=== PATIENT | male | born 1980 | race Caucasian/White ===

== ENCOUNTER 2024-09-14 00:01 | Outpatient (CLI) | payer MEDICAID, SELFPAY | END 2024-09-14 00:02 | disposition home or self-care (01) | LOC: AMB 09-16 10:24 | PROVIDERS: Visit Provider Family Medicine | DX: S09.90XA Unspecified injury of head, initial encounter (principal); Y04.8XXA Assault by other bodily force, initial encounter; Y92.009 Unspecified place in unspecified non-institutional (private) residence as the place of occurrence of the external cause | CPT/HCPCS: A0998 ==

== ENCOUNTER 2024-09-15 05:18 | Outpatient (CLI) | payer MEDICAID, SELFPAY | END 2024-09-15 05:19 | disposition home or self-care (01) | PROVIDERS: Visit Provider Family Medicine | DX: S91.319A Laceration without foreign body, unspecified foot, initial encounter (principal) | CPT/HCPCS: A0998 ==